=== PATIENT | male | born 1970 | race Caucasian/White ===

== ENCOUNTER 2017-12-12 14:20 | Outpatient (CLI) | payer BC, OTHER ==
[2017-12-12 15:45] LABS: #Basophils 0.1 thou/uL (0.0-0.2); #Eosinphils 0.4 thou/uL (0.0-0.7); #Lymphocytes 1.6 thou/uL (1.20-3.40); #Monocytes 1.2 thou/uL (0.11-0.59); #Neutrophils 6.1 thou/uL (1.40-6.50); %Basophils 0.5 % (0.0-1.0); %Eosinophils 4.8 % (0.0-10.0); %Lymphocytes 17.4 % (21.0-51.0); %Monocytes 12.3 % (0.0-10.0); Hemoglobin 14.5 g/dL (14.0-18.0); Mean Corpuscular HGB CONC 33.8 g/dL (32.0-36.0); Mean Corpuscular Hemoglobin 31.8 pg (27.0-31.0); Mean Corpuscular Volume 94.2 fL (78.0-98.0); Mean Platelet Volume 6.9 fL (7.4-10.4); Platelet Count 273 thou/uL (130-400); RBC Distribution Width 11.3 % (11.5-14.5); Red Blood Cell (RBC) Count 4.57 mill/uL (4.70-6.10); White Blood Cell (WBC) Count 9.4 thou/uL (4.8-10.8)
[2017-12-12 16:04] LABS: ALT (SGPT) 29 U/L (8-55); AST (SGOT) 22 U/L (5-34); Albumin 4.4 g/dL (3.5-5.0); Alkaline Phosphatase 95 U/L (40-150); Anion Gap 14 mmol/L (10-20); BUN (Urea Nitrogen) 12 mg/dL (8.9-20.6); Bilirubin, Total 0.4 mg/dL (0.2-1.2); Calc. Creatinine Clearance 0 mL/min (70-130); Calcium 9.3 mg/dL (7.8-10.44); Carbon Dioxide 25 mmol/L (22-29); Chloride 105 mmol/L (98-107); Estimated GFR-MDRD Greater than 90; Globulin 3.3 g/dL (2.4-3.5); Glucose 106 mg/dL (70-105); Potassium 3.5 mmol/L (3.5-5.1); Protein, Total 7.7 g/dL (6.0-8.3); Sodium 140 mmol/L (136-145)
== END 2017-12-12 14:21 | disposition home or self-care (01) ==
LOC: LABBT 14:20
PROVIDERS: ATTEND Surgery
DX: Z01.818 Encounter for other preprocedural examination (principal); K40.91 Unilateral inguinal hernia, without obstruction or gangrene, recurrent
CPT/HCPCS: 80053; 85025; 93005; 93010

== ENCOUNTER 2017-12-22 08:14 | Day surgery (SDC) | payer OTHER ==
[2017-12-12 14:43] VITALS: BMI 30.8
[2017-12-22] MEDS ORDERED: CEFAZOLIN 2 GM/50 ML BAG ONE (08:52)
[2017-12-22] MEDS ORDERED: Bupivacaine/Epinephrine 0.25% 30 ML VIAL ONE (09:04)
[2017-12-22] MEDS ORDERED: Fentanyl 100 MCG/2 ML VIAL ONE (09:33)
[2017-12-22] MEDS ORDERED: CEFAZOLIN 1 GM VIAL ONE (09:39)
[2017-12-22] MEDS ORDERED: Meperidine HCl/PF 25 MG/ML VIAL ONE (11:16)
--- NOTE | 2017-12-22 11:38 | OP ---
DATE OF PROCEDURE: 12/22/2017 PREOPERATIVE DIAGNOSIS: Recurrent incarcerated left inguinal hernia. SURGEON: Alfred Adams M.D. PROCEDURE PERFORMED: Omental resection, recurrent left inguinal hernia repair with mesh. INDICATIONS: This is a 47-year-old male who about 8 years ago had had a left inguinal hernia repair with mesh. He developed a recurrent bulge that when I saw him in the office was reducible, but with difficulty. Over the last few days, it has become more painful and red, but he did not let us know. FINDINGS: It was strangulated with necrotic omentum. No bowel involvement. I was then able to even approach this with the laparoscope. It was a direct defect just superior and medial to the pubic tu bercle. PROCEDURE IN DETAIL: After informed consent was obtained, the patient was taken to the operating doni m. He was placed in the supine position. His abdomen and groin were prepped and draped in the usual fashion. Local anesthesia infiltrated subcutaneously and deep. A transverse left inguinal incision was performed. The subcu divided sharply. The fascia of the external oblique was incised in the di rection of its fibers. There was a lot of scar tissue, so it took a lot of dissection to define the anatomy. Once the external oblique fascia was opened, it was dissected all the way down to the ingui nal ligament. The spermatic cord was far lateral to this defect. There was this large mass that was purple in appearance, separate from the cord. It was dissected circumferentially. Then, the hernia sac was opened. The cultures were obtained. It had incarcerated omentum within it. The omentum wa s dissected out and divided between clamps and tied with 2-0 Vicryl suture, then reduced. The o mentum was sent to pathology. There was not any bowel involvement. Then, the hernia sac was closed with a 2-0 Vicryl suture. Redundant sac excised and sent as hernia sac. A PHS hernia system was use d. After the spermatic cord was dissected out, the PHS hernia system posterior layer was placed in t he preperitoneal space, laid out, sutured to the pubic tubercle medially, tucked under the external o blique fascia laterally. A notch was cut out for the spermatic cord. The wound was thoroughly irrig ated. Hemostasis was assured. The cord placed anatomically. The external oblique fascia closed wit h a running 3-0 Vicryl. Candi's closed with interrupted 3-0 Vicryl and the skin closed with a runni ng subcuticular 4-0 Rapide. Steri-Strips applied. Sterile bandage applied. His testicle was alread y kind of swollen and firm due to the, I guess, compression and inflammation, so an athletic supporte r was applied. The patient tolerated the procedure well and was transferred to recovery in good cond ition.
== END 2017-12-22 12:38 | disposition home or self-care (01) ==
LOC: SDC 08:14
PROVIDERS: ATTEND Surgery
PROC: 0YU60JZ Supplement Left Inguinal Region with Synthetic Substitute, Open Approach (ICD-10-PCS; principal; 2017-12-22)
PROC: 0DBU0ZZ Excision of Omentum, Open Approach (ICD-10-PCS; principal; 2017-12-22)
DX: K40.31 Unilateral inguinal hernia, with obstruction, without gangrene, recurrent (principal); L90.5 Scar conditions and fibrosis of skin; E78.00 Pure hypercholesterolemia, unspecified; Z79.899 Other long term (current) drug therapy
CPT/HCPCS: 36415; 51702; 80048; 81003; 87070; 87205; 88302; C1781; J0690; J2175; J3010

== ENCOUNTER 2017-12-22 18:07 | Emergency (ER) | payer OTHER ==
[2017-12-22 18:51] LABS: Bilirubin Negative (Negative); Blood, Urine Negative (Negative); Clarity Clear (Clear); Glucose, Urine (Dipstick) Negative (Negative); Leukocyte Negative (Negative); Nitrite Negative (Negative); Protein, Urine (Dipstick) Negative (Neg-Trace); Urobilinogen 0.2 mg/dL (0.2-1.0); pH, Urine 6.5 (5.0-9.0)
[2017-12-22 18:53] LABS: Specific Gravity, Urine 1.004 (1.002-1.036)
[2017-12-22 19:24] LABS: Anion Gap 15 mmol/L (10-20); BUN (Urea Nitrogen) 11 mg/dL (8.9-20.6); Calc. Creatinine Clearance 0 mL/min (70-130); Calcium 9.4 mg/dL (7.8-10.44); Carbon Dioxide 23 mmol/L (22-29); Chloride 102 mmol/L (98-107); Estimated GFR-MDRD Greater than 90; Glucose 132 mg/dL (70-105); Sodium 136 mmol/L (136-145)
== END 2017-12-22 20:05 | disposition home or self-care (01) ==
LOC: SCSER 18:07
DX: R33.9 Retention of urine, unspecified (principal); I10 Essential (primary) hypertension; E78.5 Hyperlipidemia, unspecified; Z79.899 Other long term (current) drug therapy
CPT/HCPCS: 36415; 80048; 81003

== ENCOUNTER 2018-06-12 02:05 | Outpatient (CLI) | payer OTHER ==
[2018-06-12 10:17] LABS: Bilirubin Negative (Negative); Blood, Urine Negative (Negative); Clarity CLEAR (Clear); Glucose, Urine (Dipstick) Negative (Negative); Leukocyte Negative (Negative); Nitrite Negative (Negative); Protein, Urine (Dipstick) Negative (Neg-Trace); Specific Gravity, Urine 1.003 (1.002-1.036); Urobilinogen 0.2 mg/dL (0.2-1.0); pH, Urine 6.5 (5.0-9.0)
[2018-06-12 10:19] LABS: Bacteria/HPF None Seen HPF (None Seen); Hyaline Casts/LPF 0-3 HYALINE CAST LPF (0-3 Hyaline); RBC/HPF 0-3 HPF (0-3); Squamous Epithelial None Seen HPF (0-3); WBC/HPF None Seen HPF (0-3)
[2018-06-12 10:33] LABS: Anion Gap 14 mmol/L (10-20); BUN (Urea Nitrogen) 15 mg/dL (8.9-20.6); Calc. Creatinine Clearance 0 mL/min (70-130); Calcium 9.9 mg/dL (7.8-10.44); Carbon Dioxide 25 mmol/L (22-29); Chloride 101 mmol/L (98-107); Estimated GFR-MDRD 87; Glucose 102 mg/dL (70-105); Sodium 136 mmol/L (136-145)
[2018-06-12 10:49] LABS: Band 3 % (5-11); Eosinophils 5 % (0-10); Hemoglobin 14.7 g/dL (14.0-18.0); Lymphocytes 28 % (21-51); MDiff Complete? YES; Mean Corpuscular HGB CONC 34.3 g/dL (32.0-36.0); Mean Corpuscular Hemoglobin 32.2 pg (27.0-31.0); Mean Corpuscular Volume 93.8 fL (78.0-98.0); Mean Platelet Volume 7.1 fL (7.4-10.4); Monocytes 6 % (0-10); Myelocyte 1 % (0-0); Neutrophil 50 % (42-75); Platelet Count 279 thou/uL (130-400); RBC Distribution Width 11.6 % (11.5-14.5); RBC Morphology Normal; Reactive Lymphocytes 7 % (0-10); Red Blood Cell (RBC) Count 4.58 mill/uL (4.70-6.10); White Blood Cell (WBC) Count 6.4 thou/uL (4.8-10.8)
== END 2018-06-12 02:06 | disposition home or self-care (01) ==
LOC: LABBT 02:05
PROVIDERS: ATTEND Orthopaedic Surgery Hand Surgery
DX: Z01.818 Encounter for other preprocedural examination (principal); S60.551D Superficial foreign body of right hand, subsequent encounter
CPT/HCPCS: 80048; 81001; 85025; 93005; 93010

== ENCOUNTER 2018-06-13 11:02 | Day surgery (SDC) | payer OTHER ==
[2018-06-12 09:21] VITALS: BMI 30.8
[2018-06-13] MEDS ORDERED: PROPOFOL 200 MG/20 ML VIAL ONE (15:11)
[2018-06-13] MEDS ORDERED: Ondansetron PF 4 MG/2 ML Vial ONE (15:11)
[2018-06-13] MEDS ORDERED: Dexamethasone 20 MG/5 ML VIAL ONE (15:11)
[2018-06-13] MEDS ORDERED: Lidocaine 1% PF 5 ML VIAL ONE (15:11)
[2018-06-13] MEDS ORDERED: Fentanyl 100 MCG/2 ML VIAL ONE (16:04)
[2018-06-13] MEDS ORDERED: Bupivacaine PF 0.5% 30 ML VIAL ONE (16:12)
[2018-06-13] MEDS ORDERED: Bacitracin Zinc Ointment 30 gm TUBE ONE (16:12)
[2018-06-13] MEDS ORDERED: Sodium Chloride 0.9% 10 ML ONE (16:12)
[2018-06-13] MEDS ORDERED: Ketorolac Tromethamine 30 MG/ML VIAL ONE ×2 (17:38)
[2018-06-13] MEDS ORDERED: Morphine 4 MG/ML VIAL ONE (17:38)
[2018-06-13] MEDS ORDERED: Ondansetron HCl/PF 4 MG/2 ML Vial IVP PRN (18:03)
[2018-06-13] MEDS ORDERED: Morphine 4 MG/ML VIAL SLOW IVP PRN (18:03)
[2018-06-13] MEDS ORDERED: Morphine Sulfate 2 MG/ML SYRINGE SLOW IVP PRN (18:03)
[2018-06-13] MEDS ORDERED: Promethazine HCl 25 MG/ML VIAL IM/IV PRN (18:03)
--- NOTE | 2018-06-13 18:04 | RAD ---
Radiograph right hand 2 views: 06/13/2018 at 4:18 PM HISTORY: 48-year-old male with foreign body COMPARISON: 06/05/2018 FINDINGS: These are fluoroscopic spot images obtained with C-arm, with intrinsically low image resolution. The previously demonstrated radiopaque foreign bodies are no longer visualized. IMPRESSION: Foreign bodies are no longer visualized.
--- NOTE | 2018-06-14 11:29 | OP ---
DATE OF PROCEDURE: 06/13/2018 PREOPERATIVE DIAGNOSIS: Right thumb catfish foreign body. POSTOPERATIVE DIAGNOSIS: Right thumb catfish foreign body. PROCEDURES PERFORMED: 1. Removal of right thumb catfish foreign body. 2. C-arm supervision. 3. Excision of foreign body granuloma 2.5 cm long jesus was surrounded by a 2.5-3 cm long and 6 mm wide foreign body granuloma. SPECIMEN REMOVED: The jesus, associated granuloma was sent to pathology and the jesus itself was removed in 2 pieces. BLOOD LOSS: 5 mL. TOURNIQUET TIME: 12 minutes. C-ARM USED: Yes. DESCRIPTION OF PROCEDURE: After successful general endotracheal anesthesia, the limb was prepped and draped. The patient had time-out done appropriately. We then brought the C-arm to the field, identified the 2 jesus pieces in the frontal and sagittal plane and made a zigzag incision of 1 cm over it. Carried through skin and subcutaneous tissue medially. The small 3-4 mm piece of jesus was found subcutaneously. We then dissected deep and saw an area of recinos granulation tissue in the middle of this, was the jesus itself. We slowly dissected it, making sure we did not violate any cutaneous nerve branches. Then lifted the jesus out en siva with the granuloma. We lifted, take the jesus out of the granuloma, we saved the jesus pieces for the patient and sent granuloma to the lab. There was no infection. We finished debriding the area, irrigated with a 1 L of normal saline under bulb syringe pressure. We released the tourniquet. We obtained hemostasis. Closed the incision with interrupted 4-0 nylon. Injected the area with 50 mL of marti-incisional Marcaine block 0.5%, no epinephrine. Small bulky dressing was applied. The patient left the operating room without evidence of anesthetic or operative complication. Job ID: [id number]
== END 2018-06-13 18:50 | disposition home or self-care (01) ==
LOC: SDC 11:02
PROVIDERS: ATTEND Orthopaedic Surgery Hand Surgery
PROC: 0JCJ0ZZ Extirpation of Matter from Right Hand Subcutaneous Tissue and Fascia, Open Approach (ICD-10-PCS; principal; 2018-06-13)
DX: M60.241 Foreign body granuloma of soft tissue, not elsewhere classified, right hand (principal); E78.5 Hyperlipidemia, unspecified; I10 Essential (primary) hypertension; Z18.31 Retained animal quills or spines; Z79.82 Long term (current) use of aspirin; Z79.899 Other long term (current) drug therapy; Z88.8 Allergy status to other drugs, medicaments and biological substances
CPT/HCPCS: 76000; 88305; J0690; J1100; J1885; J2001; J2270; J2405; J2704; J3010; J3490; S0020

== ENCOUNTER 2018-10-18 08:06 | Outpatient (CLI) | payer OTHER ==
[2018-10-18 09:23] LABS: Hemoglobin 15.5 g/dL (14.0-18.0); Mean Corpuscular HGB CONC 35.1 g/dL (32.0-36.0); Mean Corpuscular Hemoglobin 32.6 pg (27.0-31.0); Mean Corpuscular Volume 92.9 fL (78.0-98.0); Mean Platelet Volume 7.3 fL (7.4-10.4); Platelet Count 243 thou/uL (130-400); RBC Distribution Width 11.5 % (11.5-14.5); Red Blood Cell (RBC) Count 4.75 mill/uL (4.70-6.10); White Blood Cell (WBC) Count 6.3 thou/uL (4.8-10.8)
[2018-10-18 09:25] LABS: INR-International Normal Ratio 0.9; Prothrombin Time 12.1 SEC (12.0-14.7)
[2018-10-18 09:26] LABS: Bacteria/HPF None Seen HPF (None Seen); Bilirubin Negative (Negative); Blood, Urine Negative (Negative); Clarity Clear (Clear); Glucose, Urine (Dipstick) Normal (Negative); Leukocyte Negative Leu/uL (Negative); Nitrite Negative (Negative); PTT 29.8 SEC (22.9-36.1); Protein, Urine (Dipstick) Negative (Neg-Trace); RBC/HPF 0-3 HPF (0-3); Squamous Epithelial None Seen HPF (0-3); Urobilinogen Normal mg/dL (Less than 2); WBC/HPF None Seen HPF (0-3)
[2018-10-18 09:35] LABS: Anion Gap 14 mmol/L (10-20); BUN (Urea Nitrogen) 15 mg/dL (8.9-20.6); Calc. Creatinine Clearance 0 mL/min (70-130); Calcium 9.8 mg/dL (7.8-10.44); Carbon Dioxide 24 mmol/L (22-29); Chloride 102 mmol/L (98-107); Estimated GFR-MDRD Greater than 90; Glucose 96 mg/dL (70-105); Potassium 3.7 mmol/L (3.5-5.1); Sodium 136 mmol/L (136-145)
--- NOTE | 2018-10-19 17:13 | EKG ---
Test Reason : Blood Pressure : / mmHG Vent. Rate : 067 BPM Atrial Rate : 067 BPM P-R Int : 162 ms QRS Dur : 092 ms QT Int : 380 ms P-R-T Axes : 033 058 043 degrees QTc Int : 401 ms Normal sinus rhythm ST elevation, consider early repolarization Borderline ECG Confirmed by KAMAR FLOWER ([id number]) on 10/19/2018 5:13:00 PM Referred By: LEONOR Confirmed By:KAMAR FLOWER
== END 2018-10-18 08:07 | disposition home or self-care (01) ==
LOC: LABBT 08:06
PROVIDERS: ATTEND Urology
DX: Z01.818 Encounter for other preprocedural examination (principal); N40.1 Benign prostatic hyperplasia with lower urinary tract symptoms; R35.0 Frequency of micturition; R33.9 Retention of urine, unspecified; Z87.898 Personal history of other specified conditions
CPT/HCPCS: 80048; 81001; 85027; 85610; 85730; 87086; 93005; 93010

== ENCOUNTER 2018-11-01 08:05 | Day surgery (SDC) | payer OTHER ==
[2018-11-01] MEDS ORDERED: Levofloxacin 500 mg/D5W 100 ml Premix Bag ONE (08:49)
[2018-11-01] MEDS ORDERED: Midazolam HCl 2 mg/2 ml Vial ONE (10:55)
[2018-11-01] MEDS ORDERED: Fentanyl 100 MCG/2 ML VIAL ONE (10:55)
[2018-11-01] MEDS ORDERED: Propofol 500 MG/50 ML VIAL ONE (10:55)
--- NOTE | 2018-11-01 17:35 | OP ---
DATE OF PROCEDURE: 11/01/2018 PREOPERATIVE DIAGNOSIS: A 48-year-old male with history of urinary retention, postvoid residual 1400 mL. POSTOPERATIVE DIAGNOSIS: A 48-year-old male with history of urinary retention, postvoid residual 1400 mL. PROCEDURES PERFORMED: 1. Cystoscopy. 2. UroLift urethral implant x5. ANESTHESIA: TIVA. COMPLICATIONS: None apparent. DISPOSITION: To recovery room in stable condition. INDICATIONS FOR PROCEDURE AND HISTORY: Mr. Moreland is a 48-year-old male with history of urinary retention 1400cc as above and he presents today for UroLift. Cystoscopy demonstrated mild BPH component with median ridge, his prostate volume is 27 g, and he is unable to tolerate Flomax. I informed him that there is a possibility that he may continue to not empty completely, as there may be a component of bladder myogenic component. He desires to proceed with UroLift component to optimize his outlet function. Risks, complications, and indications reviewed including, but not limited to, bleeding, pain, infection, injury to adjacent organs, urosepsis, generalized/pelvic pain, possible exposure, and migration of implant resulting in incrustation urolithiasis warranting treatment. All questions answered to satisfaction and he desired to proceed. DESCRIPTION OF PROCEDURE: After an informed consent was signed, the patient was taken to the operating room and placed in a dorsal lithotomy position with the genital area prepped and draped in the usual surgical sterile fashion. A 21- [place] Citizen cystoscope was utilized to stage the prostatic urethra and bladder, which demonstrated coapting lateral lobes, mildly obstructing, bladder unremarkable with UOs about 3 to 4 mm proximal to the bladder neck. No bladder tumor or stones were seen. At this time, a 20-[place] 0-degree UroLift scope was passed with a visual obturator. We implanted his left side of the prostate first. Total of 5 implants was performed. Care was taken to stay at minimum 1.5 cm proximal to the bladder neck. At the end of the procedure, the lateral lobes were retracted with resolution of obstructive component. At the end of the procedure, I was able to pass a 16-[place] Citizen in and out without significant issues. This was subsequently removed. I repeated the cystoscopy with the 30- and a 70-degree lens, which demonstrated no evidence of foreign body in the bladder neck, bladder mucosa. He tolerated the procedure well and transported to the recovery room in stable condition. He is discharged with ciprofloxacin 500 mg one p.o. b.i.d. for 5 days, Azo p.r.n. for dysuria, alfuzosin 10 mg #30 one p.o. daily, which I wanted to continue for minimum 4 weeks. Postop he did well, no significant postvoid residual less than 100 mL. Discharge uneventfully Job ID: [id number] [facility]
== END 2018-11-01 14:25 | disposition home or self-care (01) ==
LOC: SDC 08:05
PROVIDERS: ATTEND Urology
PROC: 0T7D8DZ Dilation of Urethra with Intraluminal Device, Via Natural or Artificial Opening Endoscopic (ICD-10-PCS; principal; 2018-11-01)
DX: N40.1 Benign prostatic hyperplasia with lower urinary tract symptoms (principal); R39.14 Feeling of incomplete bladder emptying; R35.0 Frequency of micturition; I10 Essential (primary) hypertension; E78.00 Pure hypercholesterolemia, unspecified; Z79.82 Long term (current) use of aspirin; Z79.899 Other long term (current) drug therapy; Z88.8 Allergy status to other drugs, medicaments and biological substances
CPT/HCPCS: C1889; J1956; J2250; J2704; J3010